=== PATIENT | male | born 1970 | race Caucasian/White ===

== ENCOUNTER 2021-08-08 08:49 | Outpatient (CLI) | payer OTHER ==
--- NOTE | 2021-08-08 10:54 | CARDIAC PROCEDURE NOTE ---
Stress Test Report Service Date: 08/08/21 Service Time: 09:00 Ordering Provider: Preston Jordan Indication for Test: Assess for ischemic basis for several months' history of non-exertional chest tightness. 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 He has also undergone total right knee replacement surgery, and as a consequence of these factors he is rather sedentary. He walks his dog for up to 10 minutes a couple of times a day, typically avoiding significant inclines. He used to swim but has been unable to do so since the pandemic onset. - He reports that about 6 months ago he started to experience non-exertional central substernal chest tightness, typically triggered by psychosocial stress, not associated with diaphoresis, nausea or increased work of breathing. In fact, when the pain comes on he feels better getting up and moving around. He does note that over the past few weeks the chest tightness has been less evident. Cardiac Risk Factors: Ronald has been diagnosed with hypertension but stopped taking antihypertensive therapy "a while back". He has history of obstructive sleep apnea, for which he uses CPAP ("can't sleep without it", though sleep quality remains poor due to back pain). He reports that his maternal grandfather had a heart attack at age 55 but he is unaware of other close relatives with heart attack or stroke; he has been an active cigarette smoker for many years, though smokes very intermittently throughout the day and consumes about 2 cigarettes (total) daily. He has not been told of elevated cholesterol or diagnosis of diabetes. He has had difficulty with weight gain. Type of Stress Test: ETT with Myocardial Perfusion Imaging Pharmacologic Agent: Lexiscan (Lexiscan administered as was unable to exercise long enough to reach target heart rate.) Procedure: -Exercise Treadmill Test- After signing informed consent, the patient underwent resting myocardial perfusion imaging. He then performed treadmill exercise using a Modified Kobe protocol. The patient exercised for 11 minutes 30 seconds and achieved a peak heart rate of 120 (73 percent predicted maximum heart rate for age), and an estimated workload of 7.1 METS. After reaching this submaximal workload he could not continue walking due to fatigue/shortness of breath, and he was injected with Lexiscan, to increase sensitivity to detect ischemia. Resting heart rate: 53 Peak heart rate: 120 Abnormal response to exercise. Resting BP: 137/91 Peak BP: 163/82 Borderline elevated resting BP with physiologic increase in response to exercise. Rhythm during exercise: Sinus rhythm throughout. Symptoms: Resting back pain was rated at "4.5/10" and did not increase further. He did NOT experience chest tightness at any time. EKG at rest showed sinus bradycardia at 56 bpm with normal pattern of QRS complexes and ST segments, with biphasic T waves in the inferior and anterolateral leads. EKG at peak treadmill stress showed no ischemia by EKG criteria; there were no changes in ST segments following Lexiscan administration. In Recovery heart rate rapidly normalized and BP returned toward the borderline elevated starting level. IJak MD, was present throughout this stress test and supervised it in its entirety. Nuclear imaging performed at rest and with stress and will be reported separately. Summary: 1) Probably mildly reduced exercise tolerance for age as evidenced by achievement of only 7.1 METS; no WENDI available for the modified Kobe protocol. 2) Abnormal resting EKG, with T-wave inversion. 3) Adequate level of exercise was not achieved on this treadmill stress test. Lexiscan was administered, given submaximal heart rate increase. 4) Borderline elevated blood pressure at rest, with physiologic BP response to e xercise. 5) No ischemic changes by EKG criteria were seen at peak exercise stress, nor following Lexiscan administration. 6) Nuclear image interpretation includes normal left ventricular size and syst olic function, with normal perfusion throughout during both resting and stress phases. Thus there is no evidence of prior infarct or inducible ischemia. CONCLUSIONS: 1) Normal/low risk results in setting of combined exercise/Lexiscan stress. 2) Recommend renewed focus on blood pressure; patient encouraged to obtain an arm BP cuff and perform/report results of home monitoring. If elevated, conside ration of re-evaluation of adequacy/effectiveness of CPAP treatment may be appropriate. 3) Efforts at weight loss, further smoking reduction and increased exercise (e.g. swimming) were encouraged.
[2021-08-08] MEDS ORDERED: AMINOPHYLLINE 500 MG/20 ML VIAL ONE (10:56)
[2021-08-08] MEDS ORDERED: REGADENOSON 0.4 MG/5 ML SYRINGE IVP ONE ×2 (10:56→12:21)
--- NOTE | 2021-08-08 16:52 | Nuclear Medicine Report ---
PROCEDURE: Rest and exercise myocardial perfusion SPECT with gated imaging and ejection fraction INDICATIONS: CHEST PAIN RADIOPHARMACEUTICAL: 12.7 mCi Tc-99m Myoview IV at rest and 38.8 mCi Tc-99m Myoview IV at peak exerc ise. [id number] was performed. TECHNIQUE: Radiopharmaceutical was injected at peak stress test, and also at rest. SPECT images wer e obtained. SPECT myocardial perfusion images were displayed in short axis, horizontal long axis, an d vertical long axis views. Gated images were reviewed using Auto[employer] software. COMPARISON: None available. FINDINGS: Raw data: There is good myocardial labeling by radiotracer. No significant motion artifacts. Lung- to-heart ratio is 0.30 (normal is less than 0.46 for tetrafosmin tracer). Left ventricle function: Gated images demonstrate normal left ventricle wall thickening. No segment al wall motion abnormality. No transient ischemic dilation; TID is 0.90 (normal less than 1.30). Th e left ventricle resting end-diastolic volume is normal. Left ventricle stress ejection fraction is >70%; normal values are above 45%. Myocardial perfusion: There is normal distribution of activity in the left and right ventricular hue cardium. No fixed or reversible perfusion defects. IMPRESSION: 1. Normal myocardial perfusion images. No perfusion defect to suggest myocardial ischemia or infarct. 2. Normal left ventricular volume and systolic function. 3. Please correlate with stress EKG result. PQRS ATTESTATIONS: Measure 322 - Is this imaging test primarily performed on a low-risk surgery patient for preoperative evaluation within 30 days preceding their low-risk non-cardiac surgery? Low-risk surgery is defined as cardiac or myocardial infarction less than 1%, including (but not limited to) endoscopic pr ocedures, superficial procedures, cataract surgery, and excisional breast surgery: Answer: No Measure 323 - Is this imaging test performed primarily for the monitoring of an asymptomatic patient who had percutaneous coronary intervention on the visit date or within 2 years of the visit date? An swer: No Measure 324 - Is this imaging test performed primarily for the initial detection and risk assessment on an asymptomatic, low coronary heart disease patient? Low CHD risk definition = clinicians should consider the maximum number of available patient factors used to estimate risk based on Faber (A TP III criteria), typically age, gender, diabetes, smoking status, and use of blood pressure medicati on, and integrate age appropriate estimates for missing elements, such as LDL or standard blood press ure. Answer: No Reviewed by: Twan Nickerson MD on 08/08/2021 4:51 PM PDT Approved by: Twan Nickerson MD on 08/08/2021 4:51 PM PDT Station ID: [id number]
== END 2021-08-08 08:50 | disposition home or self-care (01) ==
LOC: DI 08:49
PROVIDERS: ATTEND Internal Medicine
DX: R07.9 Chest pain, unspecified (principal); R94.31 Abnormal electrocardiogram [ECG] [EKG]; I10 Essential (primary) hypertension; G47.33 Obstructive sleep apnea (adult) (pediatric); R63.5 Abnormal weight gain; F17.210 Nicotine dependence, cigarettes, uncomplicated; Z82.49 Family history of ischemic heart disease and other diseases of the circulatory system
CPT/HCPCS: 78452; 93017; A9500; J2785

== ENCOUNTER 2021-10-17 08:00 | Outpatient (CLI) | payer OTHER ==
[2021-10-17 21:48] LABS: CHLAMYDIA TRACHOMATIS DNA NEGATIVE (NEGATIVE); NEISSERIA GONORRHOEAE DNA NEGATIVE (NEGATIVE)
[2021-10-18 14:57] LABS: HEPATITIS C ANTIBODY NON-REACTIVE (NON-REACTIVE)
[2021-10-19 14:27] LABS: HSV 2 IGG TYPE SPECIFIC AB <0.90 index
== END 2021-10-17 23:59 | disposition home or self-care (01) ==
LOC: LAB.N 08:00
PROVIDERS: ATTEND Physician Assistant
DX: Z11.3 Encounter for screening for infections with a predominantly sexual mode of transmission (principal)
CPT/HCPCS: 36415; 86592; 86695; 86696; 86803; 87491; 87591; 87661